=== PATIENT | female | born 1925 | race Caucasian/White ===

== ENCOUNTER 2016-06-13 11:07 | Observation (INO) | payer MEDICARE ==
[2016-06-13 12:01] LABS: Hematocrit 40 % (35-47); Hemoglobin 13.4 g/dl (12.0-16.0); Mean Corpuscular HGB Conc 34 g/dl (31-36); Mean Corpuscular Hemoglobin 32 pg (27-31); Mean Corpuscular Volume 94 fL (80-97); Mean Platelet Volume 8 um3 (7.4-10.4); Red Blood Count 4.24 10^6/ul (4.0-5.4); Red Cell Distribution Width 14 % (10.5-15); White Blood Count 7.4 10^3/ul (3.5-10.8)
[2016-06-13 12:15] LABS: BUN/Creatinine Ratio 23.9 (8-20); Calcium 9.9 mg/dL (8.6-10.3); EGFR African American 73.9 (>60); EGFR Non-African American 57.5 (>60); Globulin 3.5 g/dL (2-4); Potassium 3.5 mmol/L (3.5-5.0); Total Bilirubin 0.8 mg/dL (0.2-1.0); Total Protein 7.5 g/dL (6.4-8.9)
--- NOTE | 2016-06-13 13:15 | RAD ---
Indication: Chest pain, weakness, hypertension. Comparison: February 25, 2003 Technique: Upright AP 1254 hours Report: Mildly elevated lung volumes. No alveolar consolidation, focal pulmonary lesion, pleural effusion, pneumothorax. Mild cardiomegaly. Unremarkable central pulmonary vasculature and mediastinal contours. IMPRESSION: No evidence for acute intrathoracic disease.
[2016-06-13] MEDS ORDERED: Nitroglycerin TAB 0.4 MG* 0.4 MG TAB SL PRN (13:53)
[2016-06-13] MEDS ORDERED: Diltiazem CD CAP* 180 MG PO ONE (13:53)
[2016-06-13] MEDS ORDERED: Aspirin EC TAB* 325 MG PO ONE (14:08)
[2016-06-13] MEDS ORDERED: hydrALAZINE IV* 20 MG/ML VIAL IV SLOW PU PRN (14:17)
[2016-06-13 14:20] LABS: HDL Cholesterol 62.4 mg/dL
--- NOTE | 2016-06-13 15:43 | HP ---
HISTORY AND PHYSICAL: DATE OF ADMISSION: 06/13/16 TIME OF EVALUATION: 01:10 p.m. PRIMARY CARE PROVIDER: Dr. Jordan. BOX CAR BRACER: Dr. Stewart. CHIEF COMPLAINT: Chest pressure. HISTORY OF PRESENT ILLNESS: Ms. Rodríguez is an 89-year-old lady with a past medical history of hypertension, possible episode of acute coronary syndrome who presents to the emergency room with complaints of chest pressure. She states she was in her usual state of health when she woke up this morning, she had her usual breakfast of coffee and toast, took her dog out for a walk and she states that she was not feeling well, but could not pinpoint exactly what was wrong. She measured her blood pressure at home and it was elevated with a systolic of 170 and a diastolic in the 100. She decided to go out with her dog again because she thought maybe some exercise would be helpful, but she actually felt worse and by that time had developed retrosternal chest pressure that she rated a 5/10 with no radiation. She measured her blood pressure again and it was still elevated, so she called her daughter who brought her to the emergency room. Although the patient states that she was in her usual state of health, the patient's daughter tells me that one of the patient's neighbors has noticed that the patient has not felt so well for the past 4 days, complaining of feeling fatigued. PAST MEDICAL HISTORY: 1. Hypertension. 2. Hyperlipidemia. 3. Osteoporosis. In 2002, the patient was seen by Dr. Stewart for an abnormal stress test that suggested inferior ischemia. She was transferred to [place] and had further testing but she does not recall the results, so it is not clear if she truly had coronary artery disease. PAST SURGICAL HISTORY: 1. Status post hysterectomy. 2. Status post hernia repair. MEDICATIONS: 1. Vitamin B complex 1 tablet p.o. daily. 2. Vitamin D 400 units p.o. daily. 3. Cardizem CD 180 mg p.o. daily. 4. Multivitamin 1 tablet p.o. daily. ALLERGIES: With CEFTIN, the patient experienced a rash. FAMILY HISTORY: The patient's father and brother had a history of coronary artery disease. SOCIAL HISTORY: She denies tobacco or alcohol use. She lives at [facility]. Surrogate decision maker is her daughter Anni Oliva, phone number is [phone]. REVIEW OF SYSTEMS: A 14-point review of systems was performed and all the pertinent negative and positive findings are in the HPI. PHYSICAL EXAMINATION GENERAL: The patient is a pleasant elderly lady sitting up in the ER stretcher in no acute distress. VITAL SIGNS: Temperature 98.8, heart rate is 68, respiratory rate is 22, oxygen saturation 96% on room air, and blood pressure is 166/68. HEENT: Pupils are equal. Moist mucous membranes. CHEST: Breath sounds present bilaterally with no added sounds. CVS: Normal S1 and S2. Regular rate and rhythm. ABDOMEN: Soft, nontender, and nondistended. Bowel sounds are present. EXTREMITIES: No edema. NEUROLOGIC: She is alert, awake, and oriented x3. Able to move all 4 extremities. LABORATORY AND IMAGING DATA: The patient had a normal CBC except for MCH of 32. INR was 0.87. Chemistry was normal except for a glucose of 108. Troponin was 0. EKG done on June 13 at 11:12 a.m. showed sinus rhythm at 75 beats per minute with T-wave inversions in 3. No prior EKG to compare. Chest x-ray showed no evidence for acute intrathoracic disease. ASSESSMENT AND PLAN: Ms. Rodríguez is an 89-year-old lady with a past medical history of hypertension, hyperlipidemia, possible coronary artery disease who presented to the emergency room with complaints of dizziness, weakness, and chest pressure. 1. Chest pressure, rule out acute coronary syndrome. The patient will be admitted to the telemetry floor as observation. She will have serial troponins and EKGs. If acute coronary syndrome is ruled out, the patient will undergo a pharmacological stress test. 2. We will try to obtain records from Dr. Stewart's office regarding her episode in 2002, but it is unclear at this time if she truly has coronary artery disease. 3. Hypertensive urgency. I suspect her symptoms are likely secondary to uncontrolled hypertension. In the emergency room she had a blood pressure of 175/115 despite taking her medication as usual last night and I suspect that could be the cause of her symptoms. At this point, I am going to continue her Cardizem at the same dose and add some hydralazine p.r.n., but she may need a higher dose of diltiazem on discharge. 4. DVT prophylaxis. The patient has a score of 3 on the DVT prophylaxis risk assessment guide and she will be started on subcutaneous heparin. 5. She will be code status. Discussed with the patient and her daughter, she wishes to be a Do Not Resuscitate. TIME SPENT: Approximately 45 minutes were spent with the patient and family interview, medical records review, physical examination to complete the admission; more than half of this time was spent [id number] with the patient in coordination of care. CC: Dr. Jordan; Dr. Stewart* [id number]/[facility] #: [id number] MTDD
[2016-06-13] MEDS: Heparin VIAL(*) 5000 UNITS/ML VIAL (FIVE THOUSAND) SUBCUT SCH ×2 (15:48→21:40)
--- NOTE | 2016-06-13 15:52 | ED ---
Zackary Bradshaw Matthew, scribed for Edward Conway MD on 06/13/16 at 1143 . HPI Chest Pain - HPI Summary HPI Summary: An 89 y/o female presents to the ED with chest pain since 09:00. The pain is described as tightness. The patient was doing her morning routine of walking the dog, eating breakfast, watching TV, and knitting, when she developed the pain. While walking the dog, the patient states that she was "shaky" with chest tightness at that time. Associated symptoms include a constant headache, which started at the same time. The patient denies SOB, nausea, and diaphoresis. The patient has not taken any medication for the discomfort, and nothing affects the pain. No recent medication changes. The patient had a catheterization approximately 25 years ago, which did not find any blockages, but she was started on a low dose of blood pressure medication at that time. - History of Current Complaint Time Seen by Provider: 06/13/16 11:15 Hx Obtained From: Patient Onset/Duration: Started Days Ago, Atraumatic, Still Present Time of Onset: 09:00 Timing: Constant Initial Severity: Mild Current Severity: Mild Pain Intensity: 2 Pain Scale Used: 0-10 Numeric Chest Pain Radiates: No Character: Tightness Aggravating Factor(s): Nothing Alleviating Factor(s): Nothing Associated Signs and Symptoms: Positive: Headaches. Negative: Shortness of Breath, Diaphoresis, Nausea - Allergy/Home Medications Allergies/Adverse Reactions: Allergies Allergy/AdvReac Type Severity Reaction Status Date / Time Cefotetan [From Cefotan] Allergy Severe Hives Verified 06/13/16 11:14 Cefuroxime [From Ceftin] Allergy Rash Verified 06/13/16 14:39 Home Medications: Home Medications Cholecalciferol TAB* [Vitamin D TAB*] 2,000 unit PO DAILY 06/13/16 [History Confirmed 06/13/16] Cyanocobalamin TAB* [Vitamin B12 TAB*] 2,500 mcg PO DAILY 06/13/16 [History Confirmed 06/13/16] Diltiazem HCl Coated Beads [Diltiazem HCl ER] 180 mg PO DAILY 06/13/16 [History Confirmed 06/13/16] Multivitamins/Minerals TAB* [Theragran/minerals TAB*] 1 tab PO DAILY 06/13/16 [ History Confirmed 06/13/16] PMH/Surg Hx/FS Hx/Imm Hx Cardiovascular History: Reports: Hx Hypertension Musculoskeletal History: Reports: Hx Osteoporosis Denies: Hx Rheumatoid Arthritis - Surgical History Surgery Procedure, Year, and Place: tubal ligation. hysterectomy. colon section. HERNIA REPAIR - Family History Family History: FHx of osteoporosis - sister - Social History Alcohol Use: None Substance Use Type: Reports: None Smoking Status (MU): Never Smoked Tobacco Review of Systems Constitutional: Negative Negative: Skin Diaphoresis Eyes: Negative ENT: Negative Positive: Chest Pain - described as tightness Respiratory: Negative Negative: Shortness Of Breath Gastrointestinal: Negative Negative: Nausea Genitourinary: Negative Musculoskeletal: Negative Skin: Negative Positive: Headache Psychological: Normal All Other Systems Reviewed And Are Negative: Yes Physical Exam Triage Information Reviewed: Yes Vital Signs On Initial Exam: Temp Pulse Resp BP Pulse Ox 98.8 F 80 16 174/65 95 06/13/16 11:14 06/13/16 11:14 06/13/16 11:14 06/13/16 11:14 06/13/16 11:14 Vital Signs Reviewed: Yes Appearance: Positive: Well-Appearing, No Pain Distress Skin: Positive: Warm, Dry Head/Face: Positive: Normal Head/Face Inspection Eyes: Positive: Normal ENT: Positive: Normal ENT inspection Neck: Positive: Supple, Nontender Respiratory/Lung Sounds: Positive: Clear to Auscultation, Breath Sounds Present Cardiovascular: Positive: IRR, Murmur - Soft systolic injection murmur Abdomen Description: Positive: Nontender, Soft Bowel Sounds: Positive: Present Musculoskeletal: Positive: Strength/ROM Intact Neurological: Positive: Alert, Oriented to Person Place, Time Psychiatric: Positive: Affect/Mood Appropriate Diagnostics - Vital Signs Vital Signs Temp Pulse Resp BP Pulse Ox 06/13/16 12:32 73 17 125/77 95 06/13/16 12:00 64 17 167/63 95 06/13/16 11:36 67 14 181/64 97 06/13/16 11:19 57 96 06/13/16 11:18 174/65 06/13/16 11:14 98.8 F 80 16 174/65 95 - Laboratory Lab Results: Lab Results 06/13/16 06/13/16 06/13/16 Range/Units 11:37 11:37 11:37 WBC 7.4 (3.5-10.8) 10^3/ul RBC 4.24 (4.0-5.4) 10^6/ul Hgb 13.4 (12.0-16.0) g/dl Hct 40 (35-47) % MCV 94 (80-97) fL MCH 32 H (27-31) pg MCHC 34 (31-36) g/dl RDW 14 (10.5-15) % Plt Count 223 (150-450) 10^3/ul MPV 8 (7.4-10.4) um3 Neut % (Auto) 58.8 (38-83) % Lymph % (Auto) 31.5 (25-47) % Morgan % (Auto) 6.9 (1-9) % Eos % (Auto) 1.9 (0-6) % Baso % (Auto) 0.9 (0-2) % Absolute Neuts (auto) 4.4 (1.5-7.7) 10^3/ul Absolute Lymphs (auto) 2.3 (1.0-4.8) 10^3/ul Absolute Monos (auto) 0.5 (0-0.8) 10^3/ul Absolute Eos (auto) 0.1 (0-0.6) 10^3/ul Absolute Basos (auto) 0.1 (0-0.2) 10^3/ul Absolute Nucleated RBC 0 10^3/ul Nucleated RBC % 0.1 INR (Anticoag Therapy) 0.87 L (0.89-1.11) Sodium 136 (133-145) mmol/L Potassium 3.5 (3.5-5.0) mmol/L Chloride 101 (101-111) mmol/L Carbon Dioxide 25 (22-32) mmol/L Anion Gap 10 (2-11) mmol/L BUN 22 (6-24) mg/dL Creatinine 0.92 (0.51-0.95) mg/dL Est GFR ( Amer) 73.9 (>60) Est GFR (Non-Af Amer) 57.5 (>60) BUN/Creatinine Ratio 23.9 H (8-20) Glucose 108 H (70-100) mg/dL Lactic Acid (0.5-2.0) mmol/L Calcium 9.9 (8.6-10.3) mg/dL Total Bilirubin 0.80 (0.2-1.0) mg/dL AST 21 (13-39) U/L ALT 15 (7-52) U/L Alkaline Phosphatase 43 (34-104) U/L Troponin I 0.00 (<0.04) ng/mL Total Protein 7.5 (6.4-8.9) g/dL Albumin 4.0 (3.2-5.2) g/dL Globulin 3.5 (2-4) g/dL Albumin/Globulin Ratio 1.1 (1-3) Triglycerides 189 mg/dL Cholesterol 277 mg/dL LDL Cholesterol 177 mg/dL HDL Cholesterol 62.4 mg/dL 06/13/16 Range/Units 11:37 WBC (3.5-10.8) 10^3/ul RBC (4.0-5.4) 10^6/ul Hgb (12.0-16.0) g/dl Hct (35-47) % MCV (80-97) fL MCH (27-31) pg MCHC (31-36) g/dl RDW (10.5-15) % Plt Count (150-450) 10^3/ul MPV (7.4-10.4) um3 Neut % (Auto) (38-83) % Lymph % (Auto) (25-47) % Morgan % (Auto) (1-9) % Eos % (Auto) (0-6) % Baso % (Auto) (0-2) % Absolute Neuts (auto) (1.5-7.7) 10^3/ul Absolute Lymphs (auto) (1.0-4.8) 10^3/ul Absolute Monos (auto) (0-0.8) 10^3/ul Absolute Eos (auto) (0-0.6) 10^3/ul Absolute Basos (auto) (0-0.2) 10^3/ul Absolute Nucleated RBC 10^3/ul Nucleated RBC % INR (Anticoag Therapy) (0.89-1.11) Sodium (133-145) mmol/L Potassium (3.5-5.0) mmol/L Chloride (101-111) mmol/L Carbon Dioxide (22-32) mmol/L Anion Gap (2-11) mmol/L BUN (6-24) mg/dL Creatinine (0.51-0.95) mg/dL Est GFR ( Amer) (>60) Est GFR (Non-Af Amer) (>60) BUN/Creatinine Ratio (8-20) Glucose (70-100) mg/dL Lactic Acid 1.4 (0.5-2.0) mmol/L Calcium (8.6-10.3) mg/dL Total Bilirubin (0.2-1.0) mg/dL AST (13-39) U/L ALT (7-52) U/L Alkaline Phosphatase (34-104) U/L Troponin I (<0.04) ng/mL Total Protein (6.4-8.9) g/dL Albumin (3.2-5.2) g/dL Globulin (2-4) g/dL Albumin/Globulin Ratio (1-3) Triglycerides mg/dL Cholesterol mg/dL LDL Cholesterol mg/dL HDL Cholesterol mg/dL Result Diagrams: 06/13/16 11:37 06/13/16 11:37 Lab Statement: Any lab studies that have been ordered have been reviewed, and results considered in the medical decision making process. - Radiology CXR Xray Interpretation: No Acute Changes - IMPRESSION: No evidence for acute intrathoracic disease. Radiology Interpretation Completed By: Radiologist - EKG 11:12 Cardiac Rate: NL - 75 bpm EKG Rhythm: Sinus Rhythm Chest Pain Course/Dx - Course Assessment/Plan: An 89 y/o female presents to the ED with chest pain since 09: 00. The pain is described as tightness. CXR shows no acute cardiopulmonary disease. EKG shows sinus rhythm at 75 bpm. Labs were reviewed and the patients troponin was 0.00. Discussed the case with Dr. Michel who will admit the patient into her services. - Diagnoses Provider Diagnoses: Chest pain at rest - Provider Notifications Discussed Care Of Patient With: Dr. Nichols (Hospitalist) at 12:57 -- Notified of patient's history and will admit the patient into her servcies. Discharge - Discharge Plan Condition: Stable Disposition: ADMITTED TO [facility] documentation as recorded by the Zackary resendiz Matthew accurately reflects the service I personally performed and the decisions made by , Edward Conway MD.
[2016-06-13 17:08] LABS: Urine Bacteria Absent (Absent); Urine Bilirubin Negative (Negative); Urine Glucose Negative (Negative); Urine Nitrite Negative (Negative)
[2016-06-13] MEDS ORDERED: Ondansetron INJ* 2 MG/ML VIAL IV PRN (17:38)
[2016-06-13] MEDS: Acetaminophen TAB* 325 MG PO PRN (21:39)
[2016-06-14] MEDS: Heparin VIAL(*) 5000 UNITS/ML VIAL (FIVE THOUSAND) SUBCUT SCH (05:56)
[2016-06-14] MEDS ORDERED: Diltiazem CD CAP* 180 MG PO SCH (09:00)
[2016-06-14] MEDS ORDERED: Aspirin EC Low Dose* 81 MG TAB.EC PO SCH (09:00)
[2016-06-14] MEDS ORDERED: Multivitamins/Minerals TAB PO SCH (09:00)
[2016-06-14] MEDS ORDERED: Regadenoson* 0.4 MG/5 ML SYRINGE ONE (12:31)
[2016-06-14] MEDS: Acetaminophen TAB* 325 MG PO PRN (13:00)
[2016-06-14 13:15] VITALS: BP 163/77
--- NOTE | 2016-06-14 13:18 | RAD ---
INDICATION: Chest pain COMPARISON: None TECHNIQUE: A single day SPECT protocol was utilized. Rest images were acquired following the intravenous injection of 10.9 millicuries of technetium 99m tetrofosmin. Pharmacologic stress images were acquired following the intravenous administration of 25.1 millicuries of technetium 99m tetrofosmin. FINDINGS: There are no defects of the stress-induced or fixed nature. The cardiac chamber size is normal. There are no wall motion abnormalities. The ejection fraction is calculated at 80 percent during stress. Other: Source CT images show a hiatal hernia. IMPRESSION: NEGATIVE EXAMINATION. ASSESSMENT: LOW-RISK Based on imaging criteria from ACC/AHA 2002 Guideline Update for the Management of Patients With Chronic Stable Angina Table 23. Noninvasive Risk Stratification.
--- NOTE | 2016-06-15 00:15 | DS ---
DISCHARGE SUMMARY: DATE OF ADMISSION: 06/13/16 DATE OF DISCHARGE: 06/14/16 PRIMARY CARE PROVIDER: Dr. Jordan. DISCHARGE DIAGNOSES: 1. Chest pain with low probability cardiac stress test documented on 06/14/16. 2. Uncontrolled hypertension. SECONDARY DIAGNOSES: 1. History of hypertension. 2. Dyslipidemia. 3. Osteoporosis. MEDICATIONS AT DISCHARGE: Include: 1. Increased dose of Cardizem CD at 240 mg daily. 2. Multivitamin 1 daily. 3. Vitamin B12 2500 mcg daily. 4. Vitamin D3 2000 units daily. LABORATORY DATA THROUGHOUT THE PATIENT'S HOSPITAL STAY: Showed troponins of 0. Otherwise, the data is unchanged from prior. HOSPITALIZATION COURSE: Zoraida Rodríguez is an 89-year-old female who presented with chest pain. For details, please see history and physical dictated by Dr. Arce at admission. The patient did not have recurrence of her chest pain throughout her hospital stay and her cardiac stress test was noted to be "low risk." The patient's systolic pressures had been in the 150s to 160s throughout her hospital stay. Her Cardizem is going to be increased from 180 to 240 mg daily. The patient is going to be discharged home to follow up with her primary care provider in approximately 4 to 7 days. PHYSICAL EXAMINATION AT THE TIME OF DISCHARGE: Blood pressure of 163/77, heart rate of 67 and regular, respiratory rate 16, oxygen saturation 99% on room air, temperature of 98.4. General: The patient is a very pleasant 89-year-old female, who is in no acute distress. Alert, awake, and oriented x3. HEENT: Head: Atraumatic, normocephalic. Eyes: Pupils equal, reactive to light and accommodation. Oropharynx clear. Mucosa moist. Neck: Supple. No JVD, no bruit bilaterally. Cardiovascular: Regular rate and rhythm. No murmur. Respiratory: Clear to auscultation bilaterally. Abdomen: Soft, nontender. Bowel sounds present in all 4 quadrants. Extremities: There is no edema. Pulses are +2 bilaterally. No clubbing or cyanosis. Please note that this is a short summary of the patient's hospital stay. Please refer to further medical records for details. CC: Dr. Jordan* [id number]/[facility] #: [id number] [facility]
== END 2016-06-14 15:20 | disposition home or self-care (01) ==
LOC: ED 11:07 → MEDTELE 12:58
PROVIDERS: ADMIT Internal Medicine; ATTEND Internal Medicine
DX: R07.9 Chest pain, unspecified (principal); I16.0 Hypertensive urgency; E78.5 Hyperlipidemia, unspecified; M81.0 Age-related osteoporosis without current pathological fracture; Z79.899 Other long term (current) drug therapy; I49.1 Atrial premature depolarization
CPT/HCPCS: 36415; 71010; 78452; 80053; 80061; 81003; 81015; 83605; 84484; 85025; 85610; 93005; 93017; 96372; 99283; A9270-GY; A9502; G0378; J1644; J2405; J2785